=== PATIENT | male | born 1945 | race Caucasian/White ===

== ENCOUNTER 2021-04-18 16:11 | Inpatient (IN) | payer OTHER ==
[2021-04-18] VITALS (21 sets, daily range): BP systolic 74–123; BP diastolic 36–76
[~2021-04-18] VITALS: Ht 185.4 cm; Wt 134.4 kg
--- NOTE | 2021-04-18 18:33 | NUR ---
PATIENT ARRIVED TO ICU ROOM 242 VIA EMS AT 1824. ARRIVED ON 15L OXYGEN, PLACED ON BIPAP AT [address] CABA. NO BELONGINGS SENT WITH PATIENT. PATIENT APPEARS TO BE IN AFIB ON THE MONITOR. PATIENT UNABLE TO STATE HIS NAME OR WHERE HE IS AT. RESTLESS AND CONFUSED. ARRIVED WITH MIDLINE IN HIS LEFT UPPER ARM, DRESSING IS CDI, BRUISING PRESENT AROUND SITE.
[2021-04-18 18:54] LABS: HEMATOCRIT 31.7 % (42.0-52.0); HEMOGLOBIN 10.4 gm/dL (14.0-18.0); MCH 30.6 pg (26.0-34.0); MCHC 32.9 g/dL (28.0-37.0); RBC 3.41 mil/uL (4.50-6.00); RDW 16.2 % (10.5-14.5); WBC 5.6 thou/uL (4.0-11.0)
[2021-04-18 19:01] LABS: CALCIUM 8.3 mg/dL (8.5-10.1); CREATININE 3.5 mg/dL (0.7-1.3); POTASSIUM 4.8 mmol/L (3.5-5.1)
[2021-04-18 19:07] LABS: TOTAL BILIRUBIN 0.9 mg/dL (0.2-1.0); TOTAL PROTEIN 7.3 g/dL (6.4-8.2)
[2021-04-18 19:35] LABS: BE(vivo) -3.8 mmol/L (-2 to +3); HCO3 22.8 mmol/L (22.0-26.0); PCO2 48.3 mmHg (35.0-45.0); PO2 95.3 mmHg (80.0-100.0); sO2 96.5 % (92.0-98.0)
[2021-04-18 19:36] LABS: pH 7.292 (7.360-7.450)
[2021-04-18 19:39] LABS: ALBUMIN 3.1 g/dL (3.4-5.0)
[2021-04-18 19:58] LABS: SGOT 33 U/L (15-37); SGPT 22 U/L (30-65)
[2021-04-18 20:22] LABS: URINE BILIRUBIN 1+ (Negative); URINE BLOOD 1+ (Negative); URINE CLARITY CLEAR; URINE COLOR YELLOW; URINE GLUCOSE-RANDOM* TRACE (Negative); URINE KETONES TRACE (Negative); URINE LEUKOCYTES NEGATIVE (Negative); URINE NITRITE NEGATIVE (Negative); URINE PROTEIN (DIPSTICK) 3+ (Negative); URINE SPECIFIC GRAVITY >= 1.030 (1.005-1.035)
[2021-04-18 20:39] LABS: ICTOTEST (BILI CONFIRMATORY) Positive (Negative)
[2021-04-18 21:11] LABS: BACTERIA 1-9 Few /HPF (None Seen); SQUAMOUS 0-3 Few /LPF (0-3); URINE RBC 3-10 Few /HPF (NONE SEEN); URINE WBC 1-5 Rare /HPF (NONE SEEN)
[2021-04-18 21:12] LABS: CASTS None Seen /LPF (None Seen); MUCUS 4-6 Moderate strn/LPF (None Seen)
[2021-04-18 21:43] LABS: INR 1.3
[2021-04-18 23:06] LABS: BE(vivo) -2.8 mmol/L (-2 to +3); HCO3 24.6 mmol/L (22.0-26.0); PCO2 54.5 mmHg (35.0-45.0); PO2 69.7 mmHg (80.0-100.0); pH 7.272 (7.360-7.450); sO2 91.4 % (92.0-98.0)
[2021-04-18] MEDS ORDERED: VENTOLIN HFA 1818 GM INH (23:46)
[2021-04-18] MEDS ORDERED: FOLIC ACID1 MG PO (23:48)
[2021-04-18] MEDS ORDERED: PULMICORT0.5 MG/2 M INH (23:48)
[2021-04-18] MEDS ORDERED: CELEXA 20 MG TA20 MG PO (23:48)
[2021-04-18] MEDS ORDERED: NEURONTIN600 MG PO (23:49)
[2021-04-18] MEDS ORDERED: FUROSEMIDE 40 M40 MG PO (23:49)
[2021-04-18] MEDS ORDERED: GLIPIZIDE 10 MG10 MG PO (23:50)
[2021-04-18] MEDS ORDERED: IPRAT-ALBUT 0.5-3 ML INH (23:52)
[2021-04-18] MEDS ORDERED: LACTULOSE20 GM/30 M PO (23:55)
[2021-04-18] MEDS ORDERED: LISINOPRIL20 MG PO (23:55)
[2021-04-18] MEDS ORDERED: OMEPRAZOLE 20 M20 M1 PO (23:57)
[2021-04-18] MEDS ORDERED: FLOMAX0.4 MG PO (23:58)
[2021-04-18] MEDS ORDERED: SPIRONOLACTONE25 MG PO (23:58)
[2021-04-19] VITALS (93 sets, daily range): BP systolic 74–151; BP diastolic 31–85
[2021-04-19] MEDS ORDERED: WARFARIN SODIU7.5 MG PO
[2021-04-19 04:46] LABS: BE(vivo) -2.9 mmol/L (-2 to +3); HCO3 24.1 mmol/L (22.0-26.0); PCO2 51.2 mmHg (35.0-45.0); PO2 92.7 mmHg (80.0-100.0); sO2 96.2 % (92.0-98.0)
[2021-04-19 05:25] LABS: BASOPHILS 0.1 % (0.0-2.0); HEMATOCRIT 31.6 % (42.0-52.0); HEMOGLOBIN 10.6 gm/dL (14.0-18.0); LYMPHOCYTES 4.3 % (24.0-44.0); MCH 31.2 pg (26.0-34.0); MCHC 33.5 g/dL (28.0-37.0); MCV 93.2 fL (80.0-100.0); MONOCYTES 8.4 % (1.0-8.0); PLATELET COUNT 95 thou/uL (150-400); POLYS 87.2 % (36.0-66.0); RBC 3.39 mil/uL (4.50-6.00); RDW 16.2 % (10.5-14.5)
[2021-04-19 05:56] LABS: ALBUMIN 2.8 g/dL (3.4-5.0); CALCIUM 8.1 mg/dL (8.5-10.1); CREATININE 3.5 mg/dL (0.7-1.3); POTASSIUM 4.7 mmol/L (3.5-5.1); TOTAL BILIRUBIN 0.9 mg/dL (0.2-1.0)
--- NOTE | 2021-04-19 07:22 | NUR ---
ASSUMED CARE AT 1900, ADMISSION AND ASSESSMENT COMPLETED, UNABLE TO HAVE PT SIGN CONSENTS D/T DECREASED LOC/CONFUSION. PT ON BIPAP, MAURO PLACED, IVF BOLUS GIVEN, AFIB 70-80'S, MIDLINE CATHETER IN PLACE. CALLED PT'S SON GALDINO APPROX 2014 TO GIVE UPDATE; GALDINO IS THE DPOA, REPORTS HIS DAD WISHES TO BE A DNR. 2315-CALLED DR. HARPER W/ABG RESULTS, RECEIVED ORDER FOR BICARB. 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 UPDATED DR. HARPER AT 0235-RECEIVED ORDER FOR VASOPRESSIN, AND STAT CT OF CHEST. PT TRANSPORTED TO CT AND BACK W/O COMPLICATIONS. VASOPRESSIN STARTED AT 0520. PT CONTINUES TO HAVE LOW URINE OUTPUT, WHICH HAS TURNED DARK RED IN COLOR. NO OTHER CONCERNS, SHIFT REPORT GIVEN 0700.
--- NOTE | 2021-04-19 07:51 | NUR ---
ASSESSMENT: CM REVIEWED CHART. PT WAS A DIRECT TRASNFER FROM [facility] DUE TO ACUTE RESPIRATORY FAILURE AND WORSENING HYPOTENSION AND ENCEPHALOPATHY. PT IS CURRENTLY ON THE BIPAP AND ENCEPHALOPATHIC. CM REACHED OUT TO PATIENTS SON GALDINO WHO IS LISTED HIS DPOA. SON REPORTS THAT PATIENT LIVES IN A HOUSE ALONE. HE STATES THAT PATIENT HAS NO STEPS TO ENTER OR ONCE INSIDE. PT HAS A CANE AND WALKER AT HOME TO ASSIST WITH AMBULATION. PT IS NORMALLY PRETTY INDEPENDENT PER SON AND ABLE TO DO ADLS ALONE. PT HAS A SHOWER CHAIR. SON REPORTS PATIENT WEARS A BIPAP AT NIGHT BUT DOES NOT HAVE OXYGEN ARRANGED AT HOME WHICH HE FEELS HE MAY NEED. PATIENT HAS NO HX OF HH THAT SON IS AWARE OF OR BEING TO A SNF. PT ALSO HAS TWO DAUGHTERS WHO ARE SUPPORTIVE. SON GALDINO CONFIRMS HE IS THE DPOA. PT IS CURRENTLY IN THE ICU AND ON IV ANBX. GUEST SERVICES DIRECTOR HAS BEEN CONSULTED AND FOLLOWING. CM WILL CONTINUE TO FOLLOW TO ASSIST NEEDED.
--- NOTE | 2021-04-19 08:23 | NUR ---
ASSUMED CARE OF PT AT 0700, DR. HARPER AT BEDSIDE 0800, NO NEW ORDERS GIVEN
[2021-04-19 11:52] LABS: URINE CREATININE-RANDOM* 330.3 mg/dL
[2021-04-19 13:01] LABS: PROT/CREAT RATIO 2.8; URINE PROTEIN-RANDOM* 921.2 mg/dL (<11.9)
[2021-04-19 13:44] LABS: % SATURATION 34 % (20-39); IRON 59 ug/dL (65-175); TIBC 176 ug/dL (250-450)
[2021-04-19] MEDS ORDERED: ALBUTEROL2.5 MG/31 INH (16:00)
[2021-04-19] MEDS ORDERED: FLONASE 0.05%50 MCG NARES (16:01)
[2021-04-19] MEDS ORDERED: SYMBICORT160 MCG/4. INH (16:01)
[2021-04-19] MEDS ORDERED: WARFARIN SODIUM1 MG PO (16:02)
[2021-04-20] VITALS (47 sets, daily range): BP systolic 88–129; BP diastolic 27–79
[2021-04-20 00:06] LABS: HAV IgM AB (ANTI-HAV IgM) Negative (Negative); HEPATITIS B SURFACE AG Negative (Negative); HEPATITIS C VIRUS AB 0.5 (0.0-0.9)
[2021-04-20 06:36] LABS: HEMATOCRIT 29.8 % (42.0-52.0); HEMOGLOBIN 9.6 gm/dL (14.0-18.0); MCH 30.6 pg (26.0-34.0); MCHC 32.1 g/dL (28.0-37.0); MCV 95.3 fL (80.0-100.0); RBC 3.13 mil/uL (4.50-6.00); RDW 16.3 % (10.5-14.5); WBC 8.8 thou/uL (4.0-11.0)
[2021-04-20 06:37] LABS: CALCIUM 7.7 mg/dL (8.5-10.1); CREATININE 3.6 mg/dL (0.7-1.3); POTASSIUM 4.9 mmol/L (3.5-5.1)
--- NOTE | 2021-04-20 07:20 | NUR ---
ASSUMED CARE AT 1900. PT MORE ALERT AND ABLE TO ANSWER SOME QUESTIONS COMPARED TO PREVIOUS NIGHT; PT IRRITABLE ABOUT THICKENED LIQUIDS AND DID NOT WANT TO TAKE MEDS W/THEM. HEPARIN TITRATED PER PROTOCOL. CONTINUED TO HAVE DARK BLOOD COLORED URINE OUTPUT, MINIMAL OUTPUT, RENAL AWARE. NO OTHER CONCERNS, SHIFT REPORT GIVEN O700.
--- NOTE | 2021-04-20 08:28 | NUR ---
ASSUMED CARE OF PATIENT AT 0700, PATIENT KNOWS HIS NAME AND THAT HE IS SICK AND IN THE HOSPITAL, HE IS DENYING ANY PAIN.
[2021-04-20 11:08] LABS: CERULOPLASMIN 23.6 mg/dL (16.0-31.0)
[2021-04-21] VITALS (65 sets, daily range): BP systolic 87–118; BP diastolic 34–74
--- NOTE | 2021-04-21 01:36 | NUR ---
ASSUMED CARE AT 1900. AT 2014, SPOKE TO DR. BANKS, OBTAINED ORDER FOR ONE TIME DOSE OF ALBUMIN; GAVE DOSE PRIOR TO 2199 LASIX. STILL WITH SCANT OUTPUT. PT LETHARGIC, DIFFICULT TO UNDERSTAND THE FEW WORDS HE SAYS, HELD PO MEDS D/T DECRE LOC. 2300 PLACED PT ON BIPAP O2 SATS KEPT DIPPING TO 88%, TOLERATING WELL SO FAR, SATS AROUND 94%. WILL CONTINUE TO MONITOR.
[2021-04-21 04:31] LABS: CALCIUM 7.8 mg/dL (8.5-10.1); CREATININE 4.2 mg/dL (0.7-1.3); POTASSIUM 5.1 mmol/L (3.5-5.1)
[2021-04-21 04:32] LABS: MCH 30.6 pg (26.0-34.0); MCHC 32.2 g/dL (28.0-37.0); MCV 95.2 fL (80.0-100.0); RBC 2.94 mil/uL (4.50-6.00); RDW 16.5 % (10.5-14.5); WBC 8.3 thou/uL (4.0-11.0)
--- NOTE | 2021-04-21 09:56 | NUR ---
PT IS NOT PROGRESSING TOWARDS DISCHARGE AT THIS TIME, PATIENT ONLY MADE <30CC URINE LAST NIGHT WHICH WAS BLOODY AND BODY TEMPERATURE DROP TO 94F. PT IS STILL DEALING WITH FLUID OVERLOAD, EVIDENCED BY SEVERE EDEMA/THIRD SPACING TO THE UPPER/LOWER EXTREMETIES. SEROSANGUINEOUS FLUID SEEPING FROM L ARM GREATLY. STILL ON TWO PRESSORS, LEVO/VASO, AT THIS TIME. PLAN FOR THE DAY IS TO RECEIVE A TEMPORARY DIALYSIS CATHETER, THE SON HAS BEEN NOTIFIED AND CONSENT WAS OBTAINED VIA 2 RNs. PT REMAINS ON BIPAP AT THIS TIME, AND HEPARIN GTT THERPY WILL CONTINUE FOR NOW
--- NOTE | 2021-04-21 11:28 | NUR ---
chart review. discussed during am rounds and los. low urine outpt. swelling in extremities. left arm weeping. use of bipap over night, still on bipap during am rounds. he was up in bed yesterday with out bipap on. cm spoke with son tyler, he here for visit. no anticipated dc over the weekend. education on post acute rehab if needed. will cont following as needed for dc needs.
[2021-04-22] VITALS (58 sets, daily range): BP systolic 90–149; BP diastolic 19–72
[2021-04-22 04:53] LABS: HEMATOCRIT 26.8 % (42.0-52.0); HEMOGLOBIN 8.9 gm/dL (14.0-18.0); MCH 31.2 pg (26.0-34.0); MCHC 33.3 g/dL (28.0-37.0); MCV 93.6 fL (80.0-100.0); RBC 2.86 mil/uL (4.50-6.00); RDW 16.2 % (10.5-14.5)
[2021-04-22 05:12] LABS: CALCIUM 8.4 mg/dL (8.5-10.1); CREATININE 3.3 mg/dL (0.7-1.3); POTASSIUM 4.4 mmol/L (3.5-5.1)
--- NOTE | 2021-04-22 07:33 | NUR ---
ASSUMED CARE AT 1900. PT FINISHING UP DIALYSIS. 2052-CALLED RENAL TO VERIFY ORDER TO GIVE IV LASIX; DR. LOZANO CONFIRMED HE SHOULD STILL GET ALL DOSES OF LASIX. INCR PVC'S ON MONITOR, BP STABLE ON PRESSORS BUT INCREASED GTT RATE LATER IN THE NIGHT. PT ON BIPAP OVERNIGHT, DID NOT TOLERATE TAKING OFF FOR ORAL CARE-DESATTED QUICKLY. CONTINUED TO BE LETHARGIC AND DID NOT RESPOND TO COMMANDS OVERNIGHT. MINIMAL DARK BLOODY OUTPUT FROM MAURO. NO OTHER CONCERNS, SHIFT REPORT GIVEN 0700.
--- NOTE | 2021-04-22 11:30 | NUR ---
DR. CABA HERE. STATES FAMILY WANTS TO MAKE PT COMFORT CARE. FAMILY WAITING FOR MORE RELATIVES AND THEN THEY WILL INSTRUCT THIS RN TO TAKE MASK AND BP MEDICINE OFF. PT SON AND DAUGTER IN LAW HERE. EMOTIONAL SUPPORT GIVEN.
--- NOTE | 2021-04-22 13:56 | NUR ---
FAMILY REQUESTED THAT MASK BE DCD. PRESSERS TURNED OFF. MOPHINE 4MG SIVP GIVEN FOR AIR HUNGER. FAMILY IS GATHERED AT BEDSIDE/ PASTORAL CARE HERE. EMOTIONAL SUPORT GIVEN.
--- NOTE | 2021-04-22 15:15 | NUR ---
NO PUPIL REACTION, NO HEART TONES OR SPONTANEOUS RESPIRATIONS. PT PRONOUNCED . DR. CABA AND ALL CONSULTING MDS NOTIFIED. MTN NOTIFIED.
[2021-04-24 10:06] LABS: ANA INTERPRETATION Negative (Negative); IgG 1685 mg/dL (603-1613)
== END 2021-04-22 15:15 | DRG 871 ==
LOC: ICU 16:11
PROVIDERS: Internal Medicine Nephrology; Nurse Practitioner; Pediatrics; ADMIT Hospitalist; ATTEND Internal Medicine
PROC: 5A09357 Assistance with Respiratory Ventilation, Less than 24 Consecutive Hours, Continuous Positive Airway Pressure (ICD-10-PCS; principal; 2021-04-18)
PROC: 5A09357 Assistance with Respiratory Ventilation, Less than 24 Consecutive Hours, Continuous Positive Airway Pressure (ICD-10-PCS; 2021-04-19)
PROC: 5A09357 Assistance with Respiratory Ventilation, Less than 24 Consecutive Hours, Continuous Positive Airway Pressure (ICD-10-PCS; 2021-04-20)
PROC: 5A0935A Assistance with Respiratory Ventilation, Less than 24 Consecutive Hours, High Flow/Velocity Cannula (ICD-10-PCS; 2021-04-20)
PROC: 5A0935A Assistance with Respiratory Ventilation, Less than 24 Consecutive Hours, High Flow/Velocity Cannula (ICD-10-PCS; 2021-04-21)
PROC: 5A09357 Assistance with Respiratory Ventilation, Less than 24 Consecutive Hours, Continuous Positive Airway Pressure (ICD-10-PCS; 2021-04-21)
PROC: B518ZZA Fluoroscopy of Superior Vena Cava, Guidance (ICD-10-PCS; 2021-04-21)
PROC: 02HV33Z Insertion of Infusion Device into Superior Vena Cava, Percutaneous Approach (ICD-10-PCS; 2021-04-21)
PROC: 5A1D70Z Performance of Urinary Filtration, Intermittent, Less than 6 Hours Per Day (ICD-10-PCS; 2021-04-21)
PROC: 5A1D70Z Performance of Urinary Filtration, Intermittent, Less than 6 Hours Per Day (ICD-10-PCS; 2021-04-22)
DX: A41.9 Sepsis, unspecified organism (principal); J18.9 Pneumonia, unspecified organism; J96.01 Acute respiratory failure with hypoxia; I50.33 Acute on chronic diastolic (congestive) heart failure; N17.0 Acute kidney failure with tubular necrosis; R65.21 Severe sepsis with septic shock; J69.0 Pneumonitis due to inhalation of food and vomit; J96.02 Acute respiratory failure with hypercapnia; G93.41 Metabolic encephalopathy; J44.0 Chronic obstructive pulmonary disease with (acute) lower respiratory infection; I13.0 Hypertensive heart and chronic kidney disease with heart failure and stage 1 through stage 4 chronic kidney disease, or unspecified chronic kidney disease; J44.1 Chronic obstructive pulmonary disease with (acute) exacerbation; R18.8 Other ascites; E46 Unspecified protein-calorie malnutrition; K76.6 Portal hypertension; K74.60 Unspecified cirrhosis of liver; D69.6 Thrombocytopenia, unspecified; D64.9 Anemia, unspecified; I48.91 Unspecified atrial fibrillation; I89.0 Lymphedema, not elsewhere classified; N18.9 Chronic kidney disease, unspecified; E11.22 Type 2 diabetes mellitus with diabetic chronic kidney disease; I25.10 Atherosclerotic heart disease of native coronary artery without angina pectoris; Z79.01 Long term (current) use of anticoagulants; Z68.39 Body mass index [BMI] 39.0-39.9, adult
CPT/HCPCS: 10078; 32100; 50455